=== PATIENT | male | born 1950 | race Caucasian/White ===

== ENCOUNTER 2016-12-13 06:54 | Day surgery (SDC) | payer MEDICARE ==
[2016-12-10 09:16] LABS: HEMATOCRIT 33.2 % (37.9-51.0); HEMOGLOBIN 11.5 g/dL (13.5-17.0); HGB HCT DIFFERENCE 1.3; MEAN CORPUSCULAR HEMOGLOBIN 30.4 pg (27.0-33.4); MEAN CORPUSCULAR HGB CONC 34.7 g/dL (32.0-36.0); MEAN CORPUSCULAR VOLUME 88 fl (80-97); RED BLOOD COUNT 3.79 10^6/uL (4.35-5.55); RED CELL DISTRIBUTION WIDTH 13.8 % (11.5-14.0); WHITE BLOOD COUNT 7.4 10^3/uL (4.0-10.5)
[2016-12-10 09:46] LABS: ANION GAP 15 (5-19); BLOOD UREA NITROGEN 49 mg/dL (7-20); CALCIUM 9.7 mg/dL (8.4-10.2); CARBON DIOXIDE 24 mmol/L (22-30); CHLORIDE 102 mmol/L (98-107); CREATININE RESULT 4.23 mg/dL (0.52-1.25); GLUCOSE 104 mg/dL (75-110); POTASSIUM 4.1 mmol/L (3.6-5.0); SODIUM 140.9 mmol/L (137-145)
[2016-12-13] MEDS ORDERED: MIDAZOLAM 2 MG/2 ML INJ ONE (08:02)
[2016-12-13] MEDS ORDERED: FENTANYL CITRATE INJ/PF 100 MCG/2 ML AMPUL ONE (08:02)
[2016-12-13] MEDS ORDERED: LIDOCAINE 0.5% INJ-PF (5 MG/ML) 50 ML SDV ONE (08:06)
[2016-12-13] MEDS ORDERED: OXYCODONE-ACETAMINOPHEN 5-325 MG TABLET ONE ×2 (08:09→08:23)
[2016-12-13] MEDS ORDERED: DIAZEPAM 5 MG TABLET ONE (08:09)
--- NOTE | 2016-12-13 08:30 | PDOC H&P ---
General Chief Complaint: The patient is referred across from dialysis for optimization of his AV fistula. Infiltration and dialysis has been noted recently. - Current Medications/Allergies Home Medications: Diltiazem HCl [Diltiazem 24Hr Cd] 240 mg PO QHS 07/30/15 Pravastatin Sodium 40 mg PO DAILY 07/30/15 Terazosin HCl 5 mg PO DAILY 07/30/15 Aspirin [Ecotrin] 81 mg PO DAILY 12/09/16 Allergies/Adverse Reactions: No Known Allergies Allergy (Verified 12/09/16 15:48) Past Medical History Cardiac Medical History: Reports: Congestive Heart Failure, Myocardial Infarction, Hyperlipidema, Hypertension - medicated Denies: Coronary Artery Disease Pulmonary Medical History: Denies: Asthma, Bronchitis, Chronic Obstructive Pulmonary Disease (COPD), Pneumonia Neurological Medical History: Denies: Seizures Endocrine Medical History: Reports: Diabetes Mellitus Type 2 GI Medical History: Denies: Hepatitis, Hiatal Hernia Musculoskeltal Medical History: Denies: Arthritis Psychiatric Medical History: Reports: Depression Hematology: Denies: Anemia, Sickle Cell Disease Past Surgical History Past Surgical History: Reports: Pacemaker - card on chart Family History Family History: Reviewed & Not Pertinent Parental Family History Reviewed: No Children Family History Reviewed: No Sibling(s) Family History Reviewed.: No Social History Smoking Status: Current Every Day Smoker Physical Exam Vital Signs: Temp Pulse Resp BP Pulse Ox 97.7 F 91 18 139/84 H 99 12/13/16 07:58 12/13/16 07:58 12/13/16 07:58 12/13/16 07:58 12/13/16 07:58 Intake & Output 12/12/16 12/13/16 12/14/16 06:59 06:59 06:59 Weight 86.7 kg Additional comments: Constitutional: Well-developed well-nourished cardiac: Heart sounds 1 and 2 normal, no murmurs. Gentleman. No apparent acute distress. Eyes: Mucous membranes pink and moist, pupils equal and reactive to light. Conjunctiva normal. Cornea normal. ENT: Hearing grossly normal. External pinna normal to inspection. Teeth intact. Tongue normal to inspection. Chest: Normal to inspection. Respiratory breath sounds are present bilaterally, normal. Normal respiratory effort. Skin: Normal to inspection. No ulcers, normal turgor. Psychiatric: Judgment, memory, insight seem normal. Mood is pleasant and appropriate. Mildly anxious. Extremities: Upper extremities show normal range of movement. Pulses present noted to the radial arteries. Capillary refill normal. No cyanosis noted. No muscle wasting noted. Right forearm AV fistula, good bruit, not overly firm. Impression/Plan Impression: #1 malfunctioning AV fistula right radiocephalic. 2 end-stage renal disease on hemodialysis. 3. Coronary artery disease. #4 Diabetes mellitus type 2. 5. Hypertension. Plan: In this patient whose right forearm AV fistula has been prone to infiltration, angiogram possible angioplasty seems well indicated. The risks, benefits, expected outcome and alternatives are familiar to the patient. He is agreeable.
[2016-12-13] MEDS ORDERED: HEPARIN SOD (PORCINE) 5,000 UNIT/ML 1 ML SYRINGE ONE (08:45)
--- NOTE | 2016-12-13 09:10 | PDOC DISCHARGE SUMMARY ---
Discharge Summary (SDC) - Discharge Final Diagnosis: #1 malfunctioning AV fistula, right radiocephalic. 2. End-stage renal disease on hemodialysis. 3. Coronary artery disease. 4. Coronary artery disease. 5. Hypertension Date of Surgery: 12/13/16 Discharge Date: 12/13/16 Condition: Good Forms: ASU Anesthesia D/C Instruction, [facility] Discharge Plan Treatment or Instructions: Discharge home [after recovery per ASU criteria]. Diet , [renal],as tolerated, when fully awake advance as tolerated. Activities within moderation encouraged. Follow up in my office by appointment in about [1 month]. Call for appointment. Leave wounds [covered], [keep clean and dry, until hemodialysis. Resume medications per medication list reconciliation sheet. May shower [in 48 hrs], [try to keep operated area as dry as possible]. Referrals: RHIANNA SIFUENTES MD [ACTIVE STAFF] - Discharge Diet: Other (Comments) - Renal Respiratory Treatments at Home: Deep Breathing/Coughing Discharge Activity: Activity As Tolerated Report the Following to Your Physician Immediately: Shortness of Breath, Unusual Bleeding
--- NOTE | 2016-12-13 09:15 | Operative Report ---
Operative Report DATE OF SURGERY: 12/13/16 PREOPERATIVE DIAGNOSIS: #1 malfunctioning AV fistula, right radiocephalic. 2. End-stage renal disease on hemodialysis. 3. Coronary artery disease. 4. Coronary artery disease. 5. Hypertension POSTOPERATIVE DIAGNOSIS: #1 malfunctioning AV fistula, right radiocephalic. Post angioplasty. 2. End-stage renal disease on hemodialysis. 3. Coronary artery disease. 4. Coronary artery disease. 5. Hypertension OPERATION: 1. Needle introduction into fistula. 2. Fistula angioplasty. 3. Angiogram interpretation. SURGEON: RHIANNA WATKINS RN RADIATION ONCOLOGY: None ANESTHESIA: Moderate Sedation TISSUE REMOVED OR ALTERED: Not applicable. COMPLICATIONS: None ESTIMATED BLOOD LOSS: 2 mL. INTRAOPERATIVE FINDINGS: Of a well founded right radiocephalic fistula. Good bruit initially, somewhat soft. Angiogram demonstrated relative stenosis in the first 4 cm with some bulbous dilatations. Really robust looking [place] radial artery distally. Proximally unable to visualize the radial artery because of the stiffness of flow. Anastomosis looks fine. Angioplasty with a 5 mm balloon visually improved the stenosis stenotic area and the fistula palpation was much improved after dilatation. PROCEDURE: PROCEDURE: After verifying the procedure and having obtained informed consent, the patient's right arm and forearm were prepared with Chlorhexidine and draped out with sterile linen. Local anesthesia infiltrated. Percutaneous access into the fistula ,[retrograde], obtained about [20 cm] from the arteriovenous anastomosis using a micro puncture needle followed by micro puncture wire and then a micro puncture catheter. This was done on ultrasound guidance using real-time access into the vein. Angiogram demonstrated the aforementioned findings. Angioplasty was elected. A 0.035 Norman wire was inserted, and over this, a 6 [place] short introducer was placed, this was followed by a 5 mm angioplasty balloon . Angioplasty was now done at the distal radial artery just before the anastomosis and over the anastomotic and perianastomotic segment. This was done very carefully and using a 3 mils syringe. Angiogram demonstrated successful outcome. Completion angiogram demonstrated [satisfactory result]. The instrumentation was now withdrawn over hand-held pressure for 5 minutes dressings applied, procedure concluded. DICTATING PHYSICIAN: RHIANNA SIFUENTES M.D. cc: RHIANNA SIFUENTES M.D. ([id number]) >>
[2016-12-13 11:14] VITALS: BP 135/84
--- NOTE | 2016-12-13 13:36 | RADIOLOGY REPORT (SQ) ---
EXAM DESCRIPTION: FISTULAGRAM W/PLASTY COMPLETED DATE/TIME: 12/13/2016 11:10 am REASON FOR STUDY: T82.858A T82.858A STENOSIS OF OTHER VASCULAR PROSTH DEV/GRFT, INIT N18.6 END STA GE RENAL DISEASE I10 ESSENTIAL (PRIMARY) HYPERTENSION COMPARISON: 08/04/2015 FLUOROSCOPY TIME: 2 minutes Multiple cine angiographic images saved to PACS. TECHNIQUE: Intra-operative images acquired during surgical procedure to evaluate progress. NUMBER OF IMAGES: Cine fluoroscopic images. LIMITATIONS: None. FINDINGS: Imaging in fluoroscopy during upper extremity dialysis access evaluation and plasty by Dr. Grimes . Please refer to the operative report for further details. IMPRESSION: INTRA PROCEDURAL IMAGING ABOVE . COMMENT: Quality ID [id number]: Final reports for procedures using fluoroscopy that document radiation exp osure indices, or exposure time and number of fluorographic images (if radiation exposure indices are not available) Please consult full operative report of the attending physician for description of the procedure. TECHNICAL DOCUMENTATION: JOB ID: [id number] [employer]- All Rights Reserved
== END 2016-12-13 10:04 | disposition home or self-care (01) ==
LOC: SC 06:54
PROVIDERS: ATTEND Surgery
PROC: 05753DZ Dilation of Right Subclavian Vein with Intraluminal Device, Percutaneous Approach (ICD-10-PCS; principal; 2016-12-13)
DX: T82.858A Stenosis of other vascular prosthetic devices, implants and grafts, initial encounter (principal); Y83.2 Surgical operation with anastomosis, bypass or graft as the cause of abnormal reaction of the patient, or of later complication, without mention of misadventure at the time of the procedure; I50.9 Heart failure, unspecified; N18.6 End stage renal disease; I13.2 Hypertensive heart and chronic kidney disease with heart failure and with stage 5 chronic kidney disease, or end stage renal disease; E11.22 Type 2 diabetes mellitus with diabetic chronic kidney disease; Z99.2 Dependence on renal dialysis; I12.0 Hypertensive chronic kidney disease with stage 5 chronic kidney disease or end stage renal disease; E78.5 Hyperlipidemia, unspecified; I25.10 Atherosclerotic heart disease of native coronary artery without angina pectoris; Z79.82 Long term (current) use of aspirin; Z79.899 Other long term (current) drug therapy
CPT/HCPCS: 36415; 85027; 80048; 36902; C1752; C1725; C1887; Q9967; C1769; J2250; J1644 ×2; A9270 ×2; J3010; J3490